=== PATIENT | female | born 1950 | race Caucasian/White ===

== ENCOUNTER → 2021-12-09 | Outpatient (CLI) | payer MEDICARE ==
--- NOTE | 2021-12-09 10:24 | CT ---
EXAMINATION TYPE: CT brain wo con DATE OF EXAM: 12/09/2021 COMPARISON: None available HISTORY: Memory loss CT DLP: 1108.4 mGycm Automated exposure control for dose reduction was used. TECHNIQUE: CT scan of the brain is performed without IV contrast administration. FINDINGS: Brain volume loss changes, likely age-related. Bilateral cerebral white matter hypodensities, likely representing chronic microvascular ischemic changes. Scattered arterial atherosclerotic calcification s. No acute intracranial hemorrhage. No gross acute cortical infarct. No midline shift, herniation or ve ntriculomegaly. Unremarkable marin-white matter differentiation, basal cisterns, sella and CP angles. No gross space-o ccupying lesion, vasogenic edema or mass effect. Unremarkable orbits. Clear visualized paranasal sinuses and mastoid air cells. Unremarkable calvarial bones. IMPRESSION: No acute intracranial abnormality or gross space-occupying lesion by this nonenhanced CT scan. Chroni c findings as described above.
== END | disposition home or self-care (01) ==
LOC: RADCTMAIN 09:31
PROVIDERS: ATTEND Psychiatry & Neurology Neurology
DX: R41.3 Other amnesia (principal)
CPT/HCPCS: 70450

== ENCOUNTER 2024-02-14 16:06 | Inpatient (IN) | payer MEDICARE, OTHER ==
[2024-02-14] MEDS ORDERED: NALOXONE 0.4 MG/ML 1 ML VIAL IV PRN (18:47)
--- NOTE | 2024-02-14 18:47 | ED ---
Altered Mental Status HPI - General Chief Complaint: Altered Mental Status Stated Complaint: Mass on L sided abd Time Seen by Provider: 02/14/24 16:15 Source: EMS Mode of arrival: ambulatory - History of Present Illness Initial Comments: 73-year-old female with past medical history of dementia who presents emergency department with altered mental status. She had an appointment with her primary care doctor today. Primary care doctor has been changing the patient's medications around as the patient has had significant decline in her mental status. The patient has been agitated at her facility. She is an elopement risk. Facility can no longer care for her due to her aggression. Primary care has had a hard time controlling her behavior and therefore sent her to the hospital for evaluation. At [facility] it was found that the patient had a urinary tract infection. She was given a dose of oral Keflex. They also found a 15 mm lung nodule with postobstructive atelectasis. Patient was transferred to our facility for evaluation by pulmonology. No reported fevers. No other alleviating, precipitating or modifying factors - Related Data Home Medications Medication Instructions Recorded Confirmed Melatonin 10 mg PO HS 02/14/24 02/14/24 oxyBUTYnin chloride [Ditropan] 5 mg PO DAILY 02/14/24 02/14/24 Previous Rx's Medication Instructions Recorded Acetaminophen Tab [Tylenol] 650 mg PO Q6HR PRN tab 02/17/24 cefUROXime axetiL [Ceftin] 500 mg PO BID 1 Days #2 tab 02/17/24 risperiDONE [RisperDAL] 0.75 mg PO DAILY #9 tab 02/17/24 risperiDONE [RisperDAL] 2 mg PO HS #6 tab 02/17/24 Allergies Allergy/AdvReac Type Severity Reaction Status Date / Time No Known Allergies Allergy Verified 02/14/24 17:03 Review of Systems ROS Statement: Those systems with pertinent positive or pertinent negative responses have been documented in the HPI. ROS Other: All systems not noted in ROS Statement are negative. Past Medical History Past Medical History: Hyperlipidemia, Liver Disease Additional Past Medical History / Comment(s): enlarged liver, ulcer,arthritis, unexplained wt loss > 30lbs , anemia History of Any Multi-Drug Resistant Organisms: None Reported Past Surgical History: Appendectomy, Back Surgery, Heart Catheterization, Hysterectomy Additional Past Surgical History / Comment(s): gale bunionectomy,bowel adhesions, back surgery x3-most recent February 18 2014 Past Anesthesia/Blood Transfusion Reactions: No Reported Reaction Past Psychological History: No Psychological Hx Reported Past Alcohol Use History: Occasional Past Drug Use History: None Reported - Past Family History Father Family Medical History: Cancer General Exam General appearance: alert, in no apparent distress Head exam: Present: atraumatic, normocephalic, normal inspection Eye exam: Present: normal appearance, PERRL, EOMI. Absent: scleral icterus, conjunctival injection, periorbital swelling ENT exam: Present: normal exam, mucous membranes moist Neck exam: Present: normal inspection. Absent: tenderness, meningismus, lymphadenopathy Respiratory exam: Present: normal lung sounds bilaterally. Absent: respiratory distress, wheezes, rales, rhonchi, stridor Cardiovascular Exam: Present: regular rate, normal rhythm, normal heart sounds. Absent: systolic murmur, diastolic murmur, rubs, gallop, clicks GI/Abdominal exam: Present: soft, normal bowel sounds. Absent: distended, tenderness, guarding, rebound, rigid Extremities exam: Present: normal inspection, full ROM, normal capillary refill. Absent: tenderness, pedal edema, joint swelling, calf tenderness Back exam: Present: normal inspection Neurological exam: Present: altered, CN II-XII intact Psychiatric exam: Present: normal affect, normal mood Skin exam: Present: warm, dry, intact, normal color. Absent: rash Course Vital Signs 02/14/24 02/14/24 02/14/24 16:13 17:00 18:00 Temperature 97.0 F L Pulse Rate 57 L Respiratory 16 Rate Blood Pressure 128/65 128/65 107/84 O2 Sat by Pulse 98 97 97 Oximetry 02/14/24 02/14/24 02/15/24 19:00 23:47 06:00 Temperature Pulse Rate 77 65 Respiratory 18 18 Rate Blood Pressure 122/62 98/51 111/58 O2 Sat by Pulse 97 97 100 Oximetry 02/15/24 02/15/24 02/15/24 10:53 11:00 17:36 Temperature 97.4 F L Pulse Rate 73 73 Respiratory 17 18 Rate Blood Pressure 97/67 119/65 O2 Sat by Pulse 100 100 Oximetry 02/15/24 19:24 Temperature Pulse Rate 77 Respiratory 18 Rate Blood Pressure 112/77 O2 Sat by Pulse 99 Oximetry Medical Decision Making - Medical Decision Making Was pt. sent in by a medical professional or institution (JES Celis, ASSEMBLY WORKER, urgent care, hospital, or halfway...) When possible be specific @ -Sent from [facility] Did you speak to anyone other than the patient for history (EMS, parent, family, police, friend...)? What history was obtained from this source @ -Spoke with EMS and daughter for history Did you review nursing and triage notes (agree or disagree)? Why? @ -I reviewed and agree with nursing and triage notes Were old charts reviewed (outside hosp., previous admission, EMS record, old EKG, old radiological studies, urgent care reports/EKG's, halfway records)? Report findings @ -I reviewed the chart from [facility] Differential Diagnosis (chest pain, altered mental status, abdominal pain women, abdominal pain men, vaginal bleeding, weakness, fever, dyspnea, syncope, head ache, dizziness, GI bleed, back pain, seizure, CVA, palpatations, mental health, musculoskeletal)? @ -Differential Altered Mental Status: Hypoglycemia, DKA, hypercapnia, ETOH, overdose, CO poisoning, trauma, myxedema coma, HTN encephalopathy, infection, encephalitis, psychosis, intercranial hemorrhage, hepatic encephalopathy, meningitis, CVA, this is not meant to be an all-inclusive list EKG interpreted by me (3pts min.). @ -Completed X-rays interpreted by me (1pt min.). @ -None done CT interpreted by me (1pt min.). @ -None done U/S interpreted by me (1pt. min.). @ -None done What testing was considered but not performed or refused? (CT, X-rays, U/S, labs)? Why? @ -CT and laboratory studies however this was already completed at outside facility What meds were considered but not given or refused? Why? @ -None Did you discuss the management of the patient with other professionals (professionals i.e. JES Celis, ASSEMBLY WORKER, lab, RT, psych nurse, social media assistant, vp project, teacher, global chief experience officer, manager highway)? Give summary @ -Spoke with Dr. Madden for admission Was smoking cessation discussed for >3mins.? @ -No Was critical care preformed (if so, how long)? @ -No Were there social determinants of health that impacted care today? How? (Homelessness, low income, unemployed, alcoholism, drug addiction, transportation, low edu. Level, literacy, decrease access to med. care, half-way, rehab)? @ -No Was there de-escalation of care discussed even if they declined (Discuss DNR or withdrawal of care, Hospice)? DNR status @ -Patient is at an AFC house What co-morbidities impacted this encounter? (DM, HTN, Smoking, COPD, CAD, Cancer, CVA, ARF, Chemo, Hep., AIDS, mental health diagnosis, sleep apnea, morbid obesity)? @ -Dementia Was patient admitted / discharged? Hospital course, mention meds given and route, prescriptions, significant lab abnormalities, going to OR and other pertinent info. @ -Upon arrival patient seen and evaluated in room 19. Thorough history and physical exam was performed. I did review the transfer packet from [facility]. Patient will be admitted with pulmonology consultation Undiagnosed new problem with uncertain prognosis? @ -No Drug Therapy requiring intensive monitoring for toxicity (Heparin, Nitro, Insulin, Cardizem)? @ -No Were any procedures done? @ -No Diagnosis/symptom? @ -Acute encephalopathy, acute UTI, lung nodule Acute, or Chronic, or Acute on Chronic? @ -Acute Uncomplicated (without systemic symptoms) or Complicated (systemic symptoms)? @ -Complicated Side effects of treatment? @ -No Exacerbation, Progression, or Severe Exacerbation? @ -No Poses a threat to life or bodily function? How? (Chest pain, [place], [place], pneumonia, PE, COPD, DKA, ARF, appy, cholecystitis, CVA, Diverticulitis, Homicidal, Suicidal, threat to staff... and all critical care pts) @ -No - Lab Data Result diagrams: 02/15/24 09:21 02/15/24 09:21 Lab Results 02/15/24 02/15/24 02/15/24 Range/Units 09:21 09:21 11:58 WBC 5.5 (3.8-10.6) k/uL RBC 3.46 L (3.80-5.40) m/uL Hgb 10.2 L (11.4-16.0) gm/dL Hct 32.3 L (34.0-46.0) % MCV 93.5 (80.0-100.0) fL MCH 29.6 (25.0-35.0) pg MCHC 31.7 (31.0-37.0) g/dL RDW 13.2 (11.5-15.5) % Plt Count 408 (150-450) k/uL MPV 8.0 Neutrophils % 60 % Lymphocytes % 29 % Monocytes % 6 % Eosinophils % 3 % Basophils % 1 % Neutrophils # 3.3 (1.3-7.7) k/uL Lymphocytes # 1.6 (1.0-4.8) k/uL Monocytes # 0.3 (0-1.0) k/uL Eosinophils # 0.2 (0-0.7) k/uL Basophils # 0.1 (0-0.2) k/uL Hypochromasia Slight Sodium 138 (137-145) mmol/L Potassium 4.2 (3.5-5.1) mmol/L Chloride 106 (98-107) mmol/L Carbon Dioxide 24 (22-30) mmol/L Anion Gap 8 mmol/L BUN 28 H (7-17) mg/dL Creatinine 0.78 (0.52-1.04) mg/dL Est GFR (CKD-EPI)AfAm 88 (>60 ml/min/1.73 sqM) Est GFR (CKD-EPI)NonAf 77 (>60 ml/min/1.73 sqM) Glucose 139 H (74-99) mg/dL Calcium 9.3 (8.4-10.2) mg/dL Urine Color Light Yellow Urine Appearance Turbid H (Clear) Urine pH 6.0 (5.0-8.0) Ur Specific [place] 1.027 (1.001-1.035) Urine Protein Trace H (Negative) Urine Glucose (UA) Negative (Negative) Urine Ketones Negative (Negative) Urine Blood Small H (Negative) Urine Nitrite Positive H (Negative) Urine Bilirubin Negative (Negative) Urine Urobilinogen <2.0 (<2.0) mg/dL Ur Leukocyte Esterase Large H (Negative) Urine RBC 9 H (0-5) /hpf Urine WBC >182 H (0-5) /hpf Urine WBC Clumps Many H (None) /hpf Ur Squamous Epith Cells 2 (0-4) /hpf Urine Bacteria Occasional H (None) /hpf Urine Mucus Rare H (None) /hpf Disposition Clinical Impression: Acute encephalopathy, UTI (urinary tract infection), Lung mass Disposition: ADMITTED IP TO THIS HOSP Is patient prescribed a controlled substance at d/c from ED?: No Time of Disposition: 18:47 Decision to Admit Reason: Admit from EC Decision Date: 02/14/24 Decision Time: 18:47
[2024-02-14] MEDS: cefTRIAXone IN SWFI 1,000 MG/10 ML SYRINGE IVP STA (21:30)
[2024-02-14] MEDS: ACETAMINOPHEN TAB 325 MG TAB PO PRN (21:31)
[2024-02-14] MEDS: ENOXAPARIN 40 MG/0.4 ML SYRINGE SQ SCH (21:36)
[2024-02-14] MEDS: haloperidoL 0.5 MG TAB PO SCH (22:01)
[2024-02-14] MEDS: risperiDONE 0.5 MG TAB PO SCH (22:01)
[2024-02-15] MEDS ORDERED: RX INFO: IV CONTRAST WAS GIVEN 1 EACH MISC MISCELLANE PRN (02:43)
[2024-02-15] MEDS: SODIUM CHLORIDE 0.9% 1,000 ML IV SCH (03:08)
--- NOTE | 2024-02-15 03:36 | P.CNPUL ---
History of Present Illness Consult date: 02/15/24 Requesting physician: Bhargavi Mayes Reason for consult: other (Pulmonary nodule) Chief complaint: Altered mental status History of present illness: Patient is a 73-year-old white female whose past medical history is unknown to me. She was transferred yesterday from [facility] with altered mental status and suspected urinary tract infection. Patient is a very poor historian. I am unable to review obtain any useful information from interview. According to the emergency room record, patient had an appointment with her primary care provider earlier yesterday. She was noted to be more confused and agitated. The [facility] facility that she was staying at reportedly could no longer take care of her due to her aggression. She was sent to [facility] for evaluation. She did have a preliminary evaluation. Reportedly found to have urinary tract infection. She was given a dose of Keflex. She did have a CT of the abdomen and pelvis at the outside facility. Incidentally, the patient was noted to have a right-sided 1.5 cm lung nodule. For this reason we were consulted. I was able to review the CT of the abdomen and pelvis from the outside facility, which demonstrate the basilar lung hummel, and a 1.5 cm peripheral right lower lobe lung nodule and possible associated postobstructive atelectasis. Unknown if the patient has any pre-existing lung disease or cancer history. Prior smoking status unknown. Patient is currently lying in bed, on room air, in no acute distress. She is oriented to self only. Baseline mentation unknown. Currently, calm and noncombative. She is receiving Haldol 0.5 mg p.o. twice daily, risperidone, and Zyprexa. She also received 1 dose of Rocephin in the emergency department. Urinalysis was reviewed from outside facility which was positive for nitrates and leukocytes. Creatinine 0.84 and BMP 34. No leukocytosis. No documented fevers. Procalcitonin 0.04. Vital signs at our facility are stable. Review of Systems ROS unobtainable: due to mental status Past Medical History Past Medical History: Hyperlipidemia, Liver Disease Additional Past Medical History / Comment(s): enlarged liver, ulcer,arthritis, unexplained wt loss > 30lbs , anemia History of Any Multi-Drug Resistant Organisms: None Reported Past Surgical History: Appendectomy, Back Surgery, Heart Catheterization, Hysterectomy Additional Past Surgical History / Comment(s): gale bunionectomy,bowel adhesions, back surgery x3-most recent February 18 2014 Past Anesthesia/Blood Transfusion Reactions: No Reported Reaction Past Psychological History: No Psychological Hx Reported Past Alcohol Use History: Occasional Past Drug Use History: None Reported - Past Family History Father Family Medical History: Cancer Medications and Allergies Home Medications Medication Instructions Recorded Confirmed Type Melatonin 10 mg PO HS 02/14/24 02/14/24 History OLANZapine [ZyPREXA] 5 mg PO DAILY 02/14/24 02/14/24 History haloperidoL [Haldol] 0.5 mg PO BID 02/14/24 02/14/24 History oxyBUTYnin chloride [Ditropan] 5 mg PO DAILY 02/14/24 02/14/24 History risperiDONE [RisperDAL] 0.5 mg PO BID 02/14/24 02/14/24 History Allergies Allergy/AdvReac Type Severity Reaction Status Date / Time No Known Allergies Allergy Verified 02/14/24 17:03 Physical Exam Vitals: Vital Signs Temp Pulse Resp BP Pulse Ox 02/14/24 23:47 77 18 98/51 97 02/14/24 19:00 122/62 97 02/14/24 18:00 107/84 97 02/14/24 17:00 128/65 97 02/14/24 16:13 97.0 F L 57 L 16 128/65 98 Intake and Output 02/14/24 02/14/24 02/15/24 14:59 22:59 06:59 Other: Weight 45.359 kg GENERAL EXAM: Alert, 73-year-old white female, fairly calm and comfortable in no apparent distress. HEAD: Normocephalic and atraumatic EYES: Normal reaction of pupils, equal size. NOSE: Clear with pink turbinates. THROAT: No erythema or exudates. NECK: No masses, no JVD. CHEST: No chest wall deformity. LUNGS: Equal air entry with no crackles, wheeze, rhonchi or dullness. On room air. No conversational dyspnea or accessory muscle use.. CVS: S1 and S2 normal with no audible murmur, regular rhythm. No extra heart sounds ABDOMEN: No hepatosplenomegaly, active bowel sounds, no guarding or rigidity. SPINE: No scoliosis or deformity SKIN: No rashes CENTRAL NERVOUS SYSTEM: Alert and oriented to self only. No focal deficits, tone is normal in all 4 extremities. EXTREMITIES: There is no peripheral edema, clubbing, or cyanosis. Peripheral pulses are intact. Results - Diagnostic Findings Chest x-ray: image reviewed Assessment and Plan Assessment: Peripheral right lower lobe 1.5 cm lung nodule with suspected associated postobstructive atelectasis. No prior recent imaging of the chest for review. Suspected urinary tract infection Worsening altered mental status, under evaluation Unknown baseline mentation, possible baseline dementia Chronic anemia Plan: Currently on room air Above-mentioned nodule was incidentally found on CT abdomen and pelvis performed at outside facility. Unfortunately, no recent imaging of the chest for review. Obtain CT of the chest with contrast. More recommendations to follow Infectious disease was added for management of the patient's presumptive UTI. Currently on multiple different antipsychotics. Patient is being worked up for possible placement on discharge We will continue to follow I have personally seen and examined the patient, performed the documentation and the assessment and plan as written. Number of minutes spent on the visit:20 Time with Patient: Greater than 30
[2024-02-15] MEDS: oxyBUTYnin chloride 5 MG TAB PO SCH (09:27)
[2024-02-15] MEDS: OLANZapine 5 MG TAB PO SCH (09:27)
[2024-02-15 09:43] LABS: Basophils # (A) 0.1 k/uL (0-0.2); Basophils % (A) 1 %; Eosinophils # (A) 0.2 k/uL (0-0.7); Eosinophils % (A) 3 %; HCT 32.3 % (34.0-46.0); HGB 10.2 gm/dL (11.4-16.0); Hypochromasia Slight; Lymphocytes # (A) 1.6 k/uL (1.0-4.8); Lymphocytes % (A) 29 %; MCH 29.6 pg (25.0-35.0); MCHC 31.7 g/dL (31.0-37.0); MCV 93.5 fL (80.0-100.0); Monocytes # (A) 0.3 k/uL (0-1.0); Monocytes % (A) 6 %; Neutrophils # (A) 3.3 k/uL (1.3-7.7); Neutrophils % (A) 60 %; Platelet Count 408 k/uL (150-450); RBC 3.46 m/uL (3.80-5.40); RDW 13.2 % (11.5-15.5); WBC 5.5 k/uL (3.8-10.6)
[2024-02-15 10:01] LABS: African American GFR (CKD) 88 (>60 ml/min/1.73 sqM); Anion Gap 8 mmol/L; Blood Urea Nitrogen 28 mg/dL (7-17); Calcium 9.3 mg/dL (8.4-10.2); Carbon Dioxide 24 mmol/L (22-30); Chloride 106 mmol/L (98-107); Glucose 139 mg/dL (74-99); Non-African American GFR(CKD) 77 (>60 ml/min/1.73 sqM); Potassium 4.2 mmol/L (3.5-5.1); Sodium 138 mmol/L (137-145)
--- NOTE | 2024-02-15 12:29 | CT ---
EXAMINATION TYPE: CT chest w con DATE OF EXAM: 02/15/2024 COMPARISON: 05/03/2014 and and outside radiograph 02/14/2024 HISTORY: 73-year-old female Pulmonary Nodule TECHNIQUE: Contiguous axial scanning of the chest after the administration of 100 ml mL of Isovue 300 . Coronal/sagittal reconstructions performed. CT DLP: 182.1mGycm. Automatic exposure control utilized for a dose reduction. FINDINGS: Heart upper limits of normal in size without pericardial effusion. LAD and RCA coronary calcification s. Aorta normal caliber with mild atherosclerotic arch calcifications and aberrant direct takeoff of the left vertebral artery directly from the aortic arch. Distal descending thoracic aorta is borderline ectatic and 2.5 cm. No thoracic lymph adenopathy by CT size criteria. Bilobed subpleural nodularity lateral right base measuring up to 2.5 x 2.0 cm (coronal image 56 and a xial image 34). Strandy interstitial scarring in the lower lungs with mild left basilar bronchiolecta sis. Additional mild emphysematous changes present. Visualized upper abdomen shows multiple right renal cysts measuring up to 1.3 cm. [place] atherosclero tic calcifications partially visualized mid abdominal aorta. Bones: Dextroconvex scoliosis of the thoracic spine. Chronic appearing mild superior endplate deformi ties of multiple lower thoracic and upper lumbar vertebral bodies. No discrete paravertebral soft tis silke abnormality seen. IMPRESSION: 1. COPD with mild emphysema and some interstitial scarring/fibrosis at the lung bases, progressed fro 2013. 2. Bilobed subpleural opacity lateral right base measuring up to 2.5 cm. While this could represent a n infectious/inflammatory focus, further PET CT evaluation recommended for potential neoplasm.
[2024-02-15 13:17] LABS: Appearance,Urine Turbid (Clear); Bacteria,Urine Occasional /hpf; Bilirubin,Urine Negative (Negative); Blood,Urine Small (Negative); Color,Urine Light Yellow; Glucose,Urine (UA) Negative (Negative); Ketones,Urine Negative (Negative); Leukocyte Esterase,Urine Large (Negative); Mucus,Urine Rare /hpf; Nitrite,Urine Positive (Negative); Protein,Urine Trace (Negative); RBC,Urine 9 /hpf (0-5); Specific Gravity,Urine 1.027 (1.001-1.035); Squamous Epithelial Cell,Urine 2 /hpf (0-4); Urobilinogen,Urine <2.0 mg/dL (<2.0); WBC,Urine >182 /hpf (0-5)
[2024-02-15 14:05] VITALS: BMI 17.2
--- NOTE | 2024-02-15 16:41 | P.HPIM ---
History of Present Illness H&P Date: 02/15/24 Chief Complaint: Increased confusion This is a pleasant 73-year-old patient, lives at [facility]. Patient had an appointment with her PCP. They have been changing and adjusting her medications for her mental status. She was getting agitated at the facility. Elopement risk. Facility was finding it difficult to care for her aggression. Patient was sent to [facility] where the patient was found have a UTI. Received a dose of Keflex and patient was sent down here for further evaluation. Patient laying in bed. Pleasantly confused. Able to ambulate. Did eat a meal here. Does not know what place this is or why she is here. Review of systems: GEN.: None EYES: None HEENT: None NECK: None RESPIRATORY: None CARDIOVASCULAR: None GASTROINTESTINAL: None GENITOURINARY: None MUSCULOSKELETAL: None LYMPHATICS: None HEMATOLOGICAL: None PSYCHIATRY: Confused e NEUROLOGICAL: None Social history: Living at [facility]. Probably smokes Physical examination: VITAL SIGNS: Afebrile, 73, 17, 111/58, 100% room air GENERAL: BMI 17.2, thin built,. Loss of subcutaneous fat and muscle mass EYES: Pupils equal. Conjunctiva shantel l. HEENT: External appearance of nose and ears normal, oral cavity grossly normal. NECK: JVD not raised; masses not palpable. HEART: First and second heart sounds are normal; no edema. LUNGS: Respiratory rate normal; clear to auscultation. ABDOMEN: Soft, nontender, liver spleen not palpable, no masses palpable. PSYCH: [Patient knows her name. Does not know where she is. Does not know the year.. MUSCULOSKELETAL:No Clubbing/cyanosis;muscles-grossly intact. OA prominent bones loss of muscle mass NEUROLOGICAL: Cranial nerves grossly intact; no facial asymmetry, power and sensation grossly intact. LYMPHATICS: No lymph nodes palpable in the axilla and neck INVESTIGATIONS, reviewed in the clinical context: February 14: White count 5.5 hemoglobin 10.2 platelets 408 sodium 138 potassium 4.2 BUN 28 creatinine 0.78 UA positive for nitrate leukoesterase WBC Labs from [facility]: Troponin less than 0.04, UA positive for leukoesterase and nitrate. Chest x-ray right-sided nodule. CT scan brain showing chronic changes. EKG tracing personally reviewed by me-normal sinus rhythm Assessment and plan: -Acute delirium probably from underlying UTI with underlying dementia -Acute UTI with cystitis IV ceftriaxone -Severe cognitive impairment likely from underlying Alzheimer's dementia with agitation possible psychosis Increase a.m. dose of Risperdal to 0.75 in the morning. Increase p.m. dose to 2mg. DC Zyprexa. Also DC Haldol p.o. scheduled -Chronic urine incontinence Will use diapers. DC Ditropan -Severe protein calorie malnutrition likely from decreased oral intake Ensure 1 can 3 times daily -Right pulmonary lung nodule Pulmonary consulted Full code -BHARATHI. Zuleyka Macedo Given the complexity and severity of patient's condition expect the patient to be in the hospital at least for 2 overnights. Patient's medication need to be adjusted will need at least 2 to 3 days for the same. I tried to reach the patient's daughter the listed #[phone]. Not going through. Past Medical History Past Medical History: Hyperlipidemia, Liver Disease Additional Past Medical History / Comment(s): enlarged liver, ulcer,arthritis, unexplained wt loss > 30lbs , anemia History of Any Multi-Drug Resistant Organisms: None Reported Past Surgical History: Appendectomy, Back Surgery, Heart Catheterization, Hysterectomy Additional Past Surgical History / Comment(s): gale bunionectomy,bowel adhesions, back surgery x3-most recent February 18 2014 Past Anesthesia/Blood Transfusion Reactions: No Reported Reaction Past Psychological History: No Psychological Hx Reported Past Alcohol Use History: Occasional Past Drug Use History: None Reported - Past Family History Father Family Medical History: Cancer Medications and Allergies Home Medications Medication Instructions Recorded Confirmed Type Melatonin 10 mg PO HS 02/14/24 02/14/24 History OLANZapine [ZyPREXA] 5 mg PO DAILY 02/14/24 02/14/24 History haloperidoL [Haldol] 0.5 mg PO BID 02/14/24 02/14/24 History oxyBUTYnin chloride [Ditropan] 5 mg PO DAILY 02/14/24 02/14/24 History risperiDONE [RisperDAL] 0.5 mg PO BID 02/14/24 02/14/24 History Allergies Allergy/AdvReac Type Severity Reaction Status Date / Time No Known Allergies Allergy Verified 02/14/24 17:03 Physical Exam Vitals: Vital Signs Temp Pulse Resp BP Pulse Ox 02/15/24 06:00 65 18 111/58 100 02/14/24 23:47 77 18 98/51 97 02/14/24 19:00 122/62 97 02/14/24 18:00 107/84 97 02/14/24 17:00 128/65 97 02/14/24 16:13 97.0 F L 57 L 16 128/65 98 Intake and Output 02/14/24 02/15/24 02/15/24 22:59 06:59 14:59 Other: Weight 45.359 kg Results CBC & Chem 7: 02/15/24 09:21 02/15/24 09:21 Labs: Abnormal Lab Results - Last 24 Hours (Table) 02/15/24 02/15/24 Range/Units 09:21 09:21 RBC 3.46 L (3.80-5.40) m/uL Hgb 10.2 L (11.4-16.0) gm/dL Hct 32.3 L (34.0-46.0) % BUN 28 H (7-17) mg/dL Glucose 139 H (74-99) mg/dL
[2024-02-15] MEDS ORDERED: risperiDONE 1 MG TAB PO SCH ×2 (21:00)
[2024-02-15] MEDS: MELATONIN 5 MG TABLET PO SCH (21:40)
[2024-02-15] MEDS: risperiDONE 1 MG TAB PO SCH (21:40)
--- NOTE | 2024-02-15 22:37 | P.CONS ---
History of Present Illness - Reason for Consult Consult date: 02/15/24 UTI with encephalopathy Requesting physician: Bhargavi Mayes - Chief Complaint Mental status changes x 1 day - History of Present Illness Patient is a 73-year-old female with a past medical history significant for hyperlipidemia liver disease, apparently was seen at [facility] for mental status changes as the patient PCP has hard time controlling her behavior at that facility patient noticed to have UTI and also a pulmonary nodule for the patient has been sent to [facility] for further evaluation, pending the patient recently noticed to having more mental status changes and the patient was on elopement precaution at the facility where she w as living, there is no clear history of any fever or any chills no headache or URI symptoms no chest pain shortness of breath or cough patient apparently holds her urine for long and did have a fall cloudy urine as reported by the caregiver on presentation to the [facility] patient was afebrile and no fever have been recorded subsequently patient was not tachycardic hypotensive or hypoxic and no need for supplemental oxygen patient did have white count of 5.5 creatinine 0.78 urine was turbid large leukocyte esterase more than 182 WBC patient did receive a dose of Rocephin infectious he was consulted for further management of antibiotic therapy. Information has been obtained from the caregiver at the bedside patient was not a good historian Review of Systems Positive points has been mentioned in HPI complete review could not be obtained because of his underlying mental status Past Medical History Past Medical History: Hyperlipidemia, Liver Disease Additional Past Medical History / Comment(s): enlarged liver, ulcer,arthritis, unexplained wt loss > 30lbs , anemia History of Any Multi-Drug Resistant Organisms: None Reported Past Surgical History: Appendectomy, Back Surgery, Heart Catheterization, Hysterectomy Additional Past Surgical History / Comment(s): gale bunionectomy,bowel adhesions, back surgery x3-most recent February 18 2014 Past Anesthesia/Blood Transfusion Reactions: No Reported Reaction Past Psychological History: No Psychological Hx Reported Smoking Status: Former smoker Past Alcohol Use History: Occasional Past Drug Use History: None Reported - Past Family History Father Family Medical History: Cancer Medications and Allergies Home Medications Medication Instructions Recorded Confirmed Type Melatonin 10 mg PO HS 02/14/24 02/14/24 History OLANZapine [ZyPREXA] 5 mg PO DAILY 02/14/24 02/14/24 History haloperidoL [Haldol] 0.5 mg PO BID 02/14/24 02/14/24 History oxyBUTYnin chloride [Ditropan] 5 mg PO DAILY 02/14/24 02/14/24 History risperiDONE [RisperDAL] 0.5 mg PO BID 02/14/24 02/14/24 History Allergies Allergy/AdvReac Type Severity Reaction Status Date / Time No Known Allergies Allergy Verified 02/14/24 17:03 Physical Exam Vitals: Vital Signs Temp Pulse Resp BP Pulse Ox 02/15/24 11:00 97.4 F L 02/15/24 10:53 73 17 97/67 100 02/15/24 06:00 65 18 111/58 100 02/14/24 23:47 77 18 98/51 97 02/14/24 19:00 122/62 97 02/14/24 18:00 107/84 97 02/14/24 17:00 128/65 97 02/14/24 16:13 97.0 F L 57 L 16 128/65 98 Intake and Output 02/14/24 02/15/24 02/15/24 22:59 06:59 14:59 Other: Weight 45.359 kg 45.359 kg GENERAL DESCRIPTION: Elderly female lying in bed, no distress. No tachypnea or accessory muscle of respiration use. HEENT: Shows Pallor , no scleral icterus. Oral mucous membrane is dry. No pharyngeal erythema or thrush NECK: Trachea central, no thyromegaly. LUNGS: Unlabored breathing. Clear to auscultation anteriorly. No wheeze or c rackle. HEART: S1, S2, regular rate and rhythm. No loud murmur ABDOMEN: Soft, no tenderness , guarding or rigidity, no organomegaly EXTREMITIES: No edema of feet. SKIN: No rash, no masses palpable. NEUROLOGICAL: The patient is awake, orientation could not be determined, mood and affect normal. Results CBC & Chem 7: 02/15/24 09:21 02/15/24 09:21 Labs: Abnormal Lab Results - Last 24 Hours (Table) 02/15/24 02/15/24 02/15/24 Range/Units 09:21 09:21 11:58 RBC 3.46 L (3.80-5.40) m/uL Hgb 10.2 L (11.4-16.0) gm/dL Hct 32.3 L (34.0-46.0) % BUN 28 H (7-17) mg/dL Glucose 139 H (74-99) mg/dL Urine Appearance Turbid H (Clear) Urine Protein Trace H (Negative) Urine Blood Small H (Negative) Urine Nitrite Positive H (Negative) Ur Leukocyte Esterase Large H (Negative) Urine RBC 9 H (0-5) /hpf Urine WBC >182 H (0-5) /hpf Urine WBC Clumps Many H (None) /hpf Urine Bacteria Occasional H (None) /hpf Urine Mucus Rare H (None) /hpf Assessment and Plan (1) Acute encephalopathy Current Visit: Yes Status: Acute Code(s): G93.40 - ENCEPHALOPATHY, UNSPECIFIED SNOMED Code(s): 05917065 (2) UTI (urinary tract infection) Current Visit: Yes Status: Acute Code(s): N39.0 - URINARY TRACT INFECTION, SITE NOT SPECIFIED SNOMED Code(s): 54390808 Plan: 1patient presented hospital mental status changes which is likely multifactorial did have a positive UA cloudy urine likely from enteric gram- negative pathogen. 2we will start the patient Rocephin 2 g daily while waiting for the culture to finalize question concern answered We will follow on clinical condition and cultures to further adjust medication if needed Thank you for this consultation we will follow the patient along with you Dictation was produced using Momo dictation software. please excuse any grammatical, word or spelling errors. Time with Patient: Greater than 30
[2024-02-16] MEDS ORDERED: risperiDONE 0.5 MG TAB PO SCH (09:00)
[2024-02-16] MEDS: risperiDONE 0.25 MG TAB PO SCH (09:18)
--- NOTE | 2024-02-16 13:01 | P.PN ---
Subjective Progress Note Date: 02/16/24 Patient is a 73-year-old white female whose past medical history is unknown to me. She was transferred yesterday from [facility] with altered mental status and suspected urinary tract infection. Patient is a very poor historian. I am unable to review obtain any useful information from interview. According to the emergency room record, patient had an appointment with her primary care provider earlier yesterday. She was noted to be more confused and agitated. The [facility] facility that she was staying at reportedly could no longer take care of her due to her aggression. She was sent to [facility] for evaluation. She did have a preliminary evaluation. Reportedly found to have urinary tract infection. She was given a dose of Keflex. She did have a CT of the abdomen and pelvis at the outside facility. Incidentally, the patient was noted to have a right-sided 1.5 cm lung nodule. For this reason we were consulted. I was able to review the CT of the abdomen and pelvis from the outside facility, which demonstrate the basilar lung hummel, and a 1.5 cm peripheral right lower lobe lung nodule and possible associated postobstructive atelectasis. Unknown if the patient has any pre-existing lung disease or cancer history. Prior smoking status unknown. Patient is currently lying in bed, on room air, in no acute distress. She is oriented to self only. Baseline mentation unknown. Currently, calm and noncombative. She is receiving Haldol 0.5 mg p.o. twice daily, risperidone, and Zyprexa. She also received 1 dose of Rocephin in the emergency department. Urinalysis was reviewed from outside facility which was positive for nitrates and leukocytes. Creatinine 0.84 and BMP 34. No leukocytosis. No documented fevers. Procalcitonin 0.04. Vital signs at our facility are stable. The patient is seen today February 16, 2024 in follow-up on the regular medical floor. The patient herself is a poor historian. Her daughter is at the bedside. The patient is maintaining good O2 saturation in the high 90s on room air. She has been afebrile. Hemodynamically stable. A CT scan of the chest revealed evidence of COPD with mild emphysema and some interstitial scarring/fibrosis of the lung bases which has progressed since 2013. There is a bilobed subpleural opacity in the lateral right base measuring up to 2.5 cm. Could represent infectious/inflammatory focus. Cannot rule out neoplasm. Urinalysis reveals positive nitrates greater than 182 WBCs and occasional bacteria. He is currently on ceftriaxone. Lovenox for DVT prophylaxis. Normal saline at 75 MLS per hour. Objective - Vital Signs Vital signs: Vital Signs Temp 97.9 F 02/16/24 12:10 Pulse 60 02/16/24 12:10 Resp 16 02/16/24 12:10 BP 115/67 02/16/24 12:10 Pulse Ox 99 02/16/24 12:10 FiO2 Intake & Output 02/15/24 02/16/24 02/16/24 18:59 06:59 18:59 Weight 45.359 kg 45.359 kg Other: Voiding Method Toilet Toilet Diaper Diaper Incontinent Incontinent # Voids 2 - Exam GENERAL EXAM: Alert, confused 73-year-old female, on room air, in no apparent distress. HEAD: Normocephalic. EYES: Normal reaction of pupils, equal size. NOSE: Clear with pink turbinates. THROAT: No erythema or exudates. NECK: No masses, no JVD. CHEST: No chest wall deformity. LUNGS: Equal air entry with no crackles, wheeze, rhonchi or dullness. CVS: S1 and S2 normal with no audible murmur, regular rhythm. ABDOMEN: No hepatosplenomegaly, normal bowel sounds, no guarding or rigidity. SPINE: No scoliosis or deformity SKIN: No rashes CENTRAL NERVOUS SYSTEM: No focal deficits, tone is normal in all 4 extremities. EXTREMITIES: There is no peripheral edema. No clubbing, no cyanosis. Peripheral pulses are intact. - Labs CBC & Chem 7: 02/15/24 09:21 02/15/24 09:21 Labs: Abnormal Lab Results - Last 24 Hours (Table) 02/15/24 Range/Units 11:58 Urine Appearance Turbid H (Clear) Urine Protein Trace H (Negative) Urine Blood Small H (Negative) Urine Nitrite Positive H (Negative) Ur Leukocyte Esterase Large H (Negative) Urine RBC 9 H (0-5) /hpf Urine WBC >182 H (0-5) /hpf Urine WBC Clumps Many H (None) /hpf Urine Bacteria Occasional H (None) /hpf Urine Mucus Rare H (None) /hpf Assessment and Plan Assessment: Bilobed subpleural opacity lateral right base measuring up to 2.5 cm. This could be infectious/inflammatory focus however neoplasm cannot be ruled out Suspected urinary tract infection, on ceftriaxone Worsening altered mental status, under evaluation, suspect secondary to UTI Unknown baseline mentation, possible baseline dementia Chronic obstructive pulmonary disease History of 50 years of smoking, quit 2 months ago Chronic anemia Plan: The patient was seen and evaluated Stable and on room air Will need outpatient workup regarding pulmonary lesion The patient's daughter is at the bedside and verbalizes understanding Follow-up in our office in 1 week Plan is for ECF at discharge I have personally seen and examined the patient, performed the documentation and the assessment and plan as written. Number of minutes spent on the visit: 10.
--- NOTE | 2024-02-16 14:52 | P.PN ---
Subjective Progress Note Date: 02/16/24 Principal diagnosis: Reason for follow-up is UTI Patient is a 73-year-old female with a past medical history significant for hyperlipidemia liver disease, apparently was seen at [facility] for mental status changes with the patient has been diagnosed with a UTI and pulmonary nodule prompting transfer to this facility. On today's evaluation that is 02/16/2024,the patient remains to be afebrile patient is breathing comfortably room air does not seem to be any distress no agitation reported by the sitter at the bedside denies any chest pain no abdominal pain or diarrhea. Patient did not have any lab draw today cultures are currently pending Objective - Vital Signs Vital signs: Vital Signs Temp 97.9 F 02/16/24 12:10 Pulse 60 02/16/24 12:10 Resp 16 02/16/24 12:10 BP 115/67 02/16/24 12:10 Pulse Ox 99 02/16/24 12:10 FiO2 Intake & Output 02/15/24 02/16/24 02/16/24 18:59 06:59 18:59 Weight 45.359 kg 45.359 kg Other: Voiding Method Toilet Toilet Diaper Diaper Incontinent Incontinent # Voids 2 - Exam GENERAL DESCRIPTION: An elderly female lying in bed in no distress RESPIRATORY SYSTEM: Unlabored breathing , decreased breath sounds at bases HEART: S1 S2 regular rate and rhythm , ABDOMEN: Soft , no tenderness EXTREMITIES: No edema feet - Labs CBC & Chem 7: 02/15/24 09:21 02/15/24 09:21 Assessment and Plan (1) Acute encephalopathy Current Visit: Yes Status: Acute Code(s): G93.40 - ENCEPHALOPATHY, UNSPECIFIED SNOMED Code(s): 32285870 (2) UTI (urinary tract infection) Current Visit: Yes Status: Acute Code(s): N39.0 - URINARY TRACT INFECTION, SITE NOT SPECIFIED SNOMED Code(s): 35525671 Plan: 1patient presented hospital mental status changes which is likely multifactorial did have a positive UA cloudy urine likely from enteric gram- negative pathogen. 2patient to continue with Rocephin 2 g daily while waiting for the culture to finalize Family the bedside questions were answered Dictation was produced using [employer] dictation software. please excuse any grammatical, word or spelling errors. Time with Patient: Less than 30
--- NOTE | 2024-02-16 17:48 | P.PN ---
Progress Note - Text Progress Note Date: 02/16/24 Chief Complaint: Increased confusion This is a pleasant 73-year-old patient, lives at [facility]. Patient had an appointment with her PCP. They have been changing and adjusting her medications for her mental status. She was getting agitated at the facility. Elopement risk. Facility was finding it difficult to care for her aggression. Patient was sent to [facility] where the patient was found have a UTI. Received a dose of Keflex and patient was sent down here for further evaluation. Patient laying in bed. Pleasantly confused. Able to ambulate. Did eat a meal here. Does not know what place this is or why she is here. February 15: Sitting up in bed. Patient's son at the bedside. Patient slept well last night. Ate a good breakfast. Light lunch. Answering simple questions. Spoke to social insurance analyst. Looking into placement. Yesterday evening spoke at length to patient's daughter over the phone. Questions answered. Active Medications Acetaminophen (Acetaminophen Tab 325 Mg Tab) 650 mg PO Q6HR PRN PRN Reason: Mild Pain or Fever > 100.5 Last Admin: 02/14/24 21:31 Dose: 650 mg Enoxaparin Sodium (Enoxaparin 40 Mg/0.4 Ml Syringe) 40 mg SQ DAILY [facility] Last Admin: 02/16/24 09:17 Dose: 40 mg Sodium Chloride (Saline 0.9%) 1,000 mls @ 75 mls/hr IV .[id number] [facility] Last Admin: 02/16/24 05:45 Dose: Not Given Ceftriaxone Sodium 2 gm/ (Sodium Chloride) 50 mls @ 100 mls/hr IVPB Q24HR [facility]; Protocol Last Admin: 02/16/24 09:18 Dose: 100 mls/hr Melatonin (Melatonin 5 Mg Tablet) 10 mg PO HS [facility] Last Admin: 02/15/24 21:40 Dose: 10 mg Miscellaneous Information (Rx Info: Iv Contrast Was Given 1 Each Misc) 1 each MISCELLANE DAILY PRN PRN Reason: Per Protocol Stop: 02/17/24 02:43 Naloxone HCl (Naloxone 0.4 Mg/Ml 1 Ml Vial) 0.2 mg IV Q2M PRN PRN Reason: Opioid Reversal Oxybutynin Chloride (Oxybutynin Chloride 5 Mg Tab) 5 mg PO DAILY [facility] Last Admin: 02/16/24 09:18 Dose: 5 mg Risperidone (Risperidone 0.25 Mg Tab) 0.75 mg PO DAILY [facility] Last Admin: 02/16/24 09:18 Dose: 0.75 mg Risperidone (Risperidone 1 Mg Tab) 2 mg PO HS [facility] Last Admin: 02/15/24 21:40 Dose: 2 mg Social history: Living at [facility]. Probably smokes Physical examination: VITAL SIGNS: 97.9, 60, 16, 115/67, 99% room air GENERAL: BMI 17.2, thin built,. Loss of subcutaneous fat and muscle mass. Sitting up in bed comfortable EYES: Pupils equal. Conjunctiva shantle l. HEENT: External appearance of nose and ears normal, oral cavity grossly normal. NECK: JVD not raised; masses not palpable. HEART: First and second heart sounds are normal; no edema. LUNGS: Respiratory rate normal; clear to auscultation. ABDOMEN: Soft, nontender, liver spleen not palpable, no masses palpable. PSYCH: [Patient knows her name. Does not know where she is. Does not know the year.. MUSCULOSKELETAL:No Clubbing/cyanosis;muscles-grossly intact. OA prominent bones loss of muscle mass INVESTIGATIONS, reviewed in the clinical context: February 14: White count 5.5 hemoglobin 10.2 platelets 408 sodium 138 potassium 4.2 BUN 28 creatinine 0.78 UA positive for nitrate leukoesterase WBC Labs from [facility]: Troponin less than 0.04, UA positive for leukoesterase and nitrate. Chest x-ray right-sided nodule. CT scan brain showing chronic changes. EKG tracing personally reviewed by me-normal sinus rhythm Assessment and plan: -Acute delirium probably from underlying UTI with underlying dementia: Better -Acute UTI with cystitis IV ceftriaxone -Severe cognitive impairment likely from underlying Alzheimer's dementia with agitation possible psychosis: Better Increase a.m. dose of Risperdal to 0.75 in the morning. Increase p.m. dose to 2mg. DC Zyprexa. Also DC Haldol p.o. scheduled -Chronic urine incontinence Will use diapers. -Severe protein calorie malnutrition likely from decreased oral intake Ensure 1 can 3 times daily -Right pulmonary lung nodule Pulmonary following. For outpatient PET scan Full code -BHARATHI. Zuleyka Macedo Looking for placement. Continue current medication treatment plan. Past Medical History Past Medical History: Hyperlipidemia, Liver Disease Additional Past Medical History / Comment(s): enlarged liver, ulcer,arthritis, unexplained wt loss > 30lbs , anemia History of Any Multi-Drug Resistant Organisms: None Reported Past Surgical History: Appendectomy, Back Surgery, Heart Catheterization, Hysterectomy Additional Past Surgical History / Comment(s): gale bunionectomy,bowel adhesions, back surgery x3-most recent February 18 2014 Past Anesthesia/Blood Transfusion Reactions: No Reported Reaction Past Psychological History: No Psychological Hx Reported Past Alcohol Use History: Occasional Past Drug Use History: None Reported
[2024-02-17 02:08] VITALS: RESP 18
[2024-02-17 08:33] VITALS: BP 128/77; PULSE 68; TEMP 97.6
--- NOTE | 2024-02-17 09:00 | CDI ---
Documentation Clarification Form Date: 02/17/2024 From: Keeley Hicks Phone: [phone] Admit Date: 02/16/2024 10:21:00 AM Patient Name: Karen Kwong Visit Number: [id number] Discharge Date: ATTENTION: The Clinical Documentation Specialists (CDI) and [facility] Coding Staff appreciate your assistance in clarifying documentation. Please respond to the clarification below the line at the bottom and electronically sign. The CDI & [facility] Coding staff will review the response and follow-up if needed. Please note: Queries are made part of the Legal Health Record. If you have any questions, please contact the author of this message via ITS. Dr. James Madden: Acute Encephalopathy is documented in the ID consult 02/14. Additional clarification regarding the type of encephalopathy is requested. History/Risk Factors: 73-year-old female with a history of severe cognitive impairment from underlying Alzheimer's dementia who presents with AMS and found to have UTI Clinical Indicators: 02/14 ID consult, Assessment: "(1) Acute encephalopathy." Plan: "1patient presented hospital mental status changes which is likely multifactorial did have a positive UA cloudy urine likely from enteric gram-negative pathogen." 02/15 IM PN, Assessment and Plan: "-Acute delirium probably from underlying UTI with underlying dementia: Better" 02/14 BUN: 28 02/14 Urinalysis: Appearance: Turbid, Protein: Trace, Blood: Small, Nitrite: Positive, Leukocyte Esterase: Large, RBC: 9, WBC: >182, Bacteria: Occasional, Mucus: Rare 02/14 Urine culture, preliminary: Gram negative bacilli Treatment: Normal Saline IV 75cc/hour 02/14-02/15 Rocephin 2gram IV [id number] start 02/14 Risperidone 2mg PO HS start 02/14 Risperidone 0.75mg PO daily start 02/15 Please clarify the type of encephalopathy, if known: [ + ] Metabolic Encephalopathy superimposed on dementia [ ] Other, please specify [ ] Unable to determine MTDD
--- NOTE | 2024-02-17 12:15 | P.DS ---
Providers Date of admission: 02/16/24 10:21 Expected date of discharge: 02/17/24 Attending physician: James Madden Consults: 02/14/24 18:47 Consult Physician Urgent Consulting Provider: Angel Crespo Consult Reason/Comments: lung mass Do you want consulting provider notified?: Yes Consult Physician Urgent Consulting Provider: Idris Hernandez Consult Reason/Comments: uti with encephalopathy Do you want consulting provider notified?: Yes Primary care physician: Physician Nonstaff Hospital Course: Chief Complaint: Increased confusion This is a pleasant 73-year-old patient, lives at [facility]. Patient had an appointment with her PCP. They have been changing and adjusting her medications for her mental status. She was getting agitated at the facility. Elopement risk. Facility was finding it difficult to care for her aggression. Patient was sent to [facility] where the patient was found have a UTI. Received a dose of Keflex and patient was sent down here for further evaluation. Patient laying in bed. Pleasantly confused. Able to ambulate. Did eat a meal here. Does not know what place this is or why she is here. February 15: Sitting up in bed. Patient's son at the bedside. Patient slept well last night. Ate a good breakfast. Light lunch. Answering simple questions. Spoke to health and social care teacher. Looking into placement. Yesterday evening spoke at length to patient's daughter over the phone. Questions answered. February 16: Daughter at the bedside. Patient slept for last night. Eating fair. Answering simple questions. Did walk in the hallway. Has a bed at [facility]. Spoke to the ed case manager. CODE STATUS DNR. Discussion and discharge planning more than 35 minutes Social history: Living at [facility]. Probably smokes Physical examination: VITAL SIGNS: 97.6, 68, 18, 128/77, 99% room air GENERAL: BMI 17.2, thin built,. Loss of subcutaneous fat and muscle mass. S itting at edge of the bed. EYES: Pupils equal. Conjunctiva shantel l. HEENT: External appearance of nose and ears normal, oral cavity grossly normal. NECK: JVD not raised; masses not palpable. HEART: First and second heart sounds are normal; no edema. LUNGS: Respiratory rate normal; clear to auscultation. ABDOMEN: Soft, nontender, liver spleen not palpable, no masses palpable. PSYCH: [Patient knows her name. Does not know where she is. Does not know the year.. MUSCULOSKELETAL:No Clubbing/cyanosis;muscles-grossly intact. OA prominent bones loss of muscle mass INVESTIGATIONS, reviewed in the clinical context: February 14: White count 5.5 hemoglobin 10.2 platelets 408 sodium 138 potassium 4.2 BUN 28 creatinine 0.78 UA positive for nitrate leukoesterase WBC Labs from [facility]: Troponin less than 0.04, UA positive for leukoesterase and nitrate. Chest x-ray right-sided nodule. CT scan brain showing chronic changes. EKG tracing personally reviewed by me-normal sinus rhythm Assessment and plan: -Acute delirium probably from underlying UTI with underlying dementia: Better -Acute UTI with cystitis IV ceftriaxone Ceftin 5 mg twice daily 2 more doses -Severe cognitive impairment likely from underlying Alzheimer's dementia with agitation possible psychosis: Better Increase a.m. dose of Risperdal to 0.75 in the morning. Increase p.m. dose to 2mg. DC Zyprexa. Also DC Haldol p.o. scheduled -Chronic urine incontinence Will use diapers. -Severe protein calorie malnutrition likely from decreased oral intake Ensure 1 can 3 times daily -Right pulmonary lung nodule Follow with Dr. CRESPO outpatient. For outpatient PET scan DNR -[facility]. Zuleyka Macedo Disposition: [facility] Advance care planning [February 16] This was discussed with patient's daughter Latosha. Overall clinical picture clinical status activity discussed. She is decided to proceed with patient being a no code. Understands. Time spent about 25 minutes Past Medical History Past Medical History: Hyperlipidemia, Liver Disease Additional Past Medical History / Comment(s): enlarged liver, ulcer,arthritis, unexplained wt loss > 30lbs , anemia History of Any Multi-Drug Resistant Organisms: None Reported Past Surgical History: Appendectomy, Back Surgery, Heart Catheterization, Hysterectomy Additional Past Surgical History / Comment(s): gale bunionectomy,bowel adhesions, back surgery x3-most recent February 18 2014 Past Anesthesia/Blood Transfusion Reactions: No Reported Reaction Past Psychological History: No Psychological Hx Reported Past Alcohol Use History: Occasional Past Drug Use History: None Reported Plan - Discharge Summary Discharge Rx Participant: No New Discharge Prescriptions: New risperiDONE [RisperDAL] 0.75 mg PO DAILY #9 tab risperiDONE [RisperDAL] 2 mg PO HS #6 tab Acetaminophen Tab [Tylenol] 650 mg PO Q6HR PRN tab PRN Reason: Mild Pain Or Fever > 100.5 cefUROXime axetiL [Ceftin] 500 mg PO BID 1 Days #2 tab Continue oxyBUTYnin chloride [Ditropan] 5 mg PO DAILY Melatonin 10 mg PO HS Discontinued risperiDONE [RisperDAL] 0.5 mg PO BID haloperidoL [Haldol] 0.5 mg PO BID OLANZapine [ZyPREXA] 5 mg PO DAILY Discharge Medication List Melatonin 10 mg PO HS 02/14/24 [History] oxyBUTYnin chloride [Ditropan] 5 mg PO DAILY 02/14/24 [History] Acetaminophen Tab [Tylenol] 650 mg PO Q6HR PRN tab 02/17/24 [Rx] cefUROXime axetiL [Ceftin] 500 mg PO BID 1 Days #2 tab 02/17/24 [Rx] risperiDONE [RisperDAL] 0.75 mg PO DAILY #9 tab 02/17/24 [Rx] risperiDONE [RisperDAL] 2 mg PO HS #6 tab 02/17/24 [Rx] Follow up Appointment(s)/Referral(s): Angel Crespo DO [Doctor of Osteopathic Medicine] - 1 Week Nonstaff,Physician [Primary Care Provider] - 1-2 days
--- NOTE | 2024-02-17 13:23 | P.PN ---
Subjective Progress Note Date: 02/17/24 Patient is a 73-year-old white female whose past medical history is unknown to me. She was transferred yesterday from [facility] with altered mental status and suspected urinary tract infection. Patient is a very poor historian. I am unable to review obtain any useful information from interview. According to the emergency room record, patient had an appointment with her primary care provider earlier yesterday. She was noted to be more confused and agitated. The [facility] facility that she was staying at reportedly could no longer take care of her due to her aggression. She was sent to [facility] for evaluation. She did have a preliminary evaluation. Reportedly found to have urinary tract infection. She was given a dose of Keflex. She did have a CT of the abdomen and pelvis at the outside facility. Incidentally, the patient was noted to have a right-sided 1.5 cm lung nodule. For this reason we were consulted. I was able to review the CT of the abdomen and pelvis from the outside facility, which demonstrate the basilar lung hummel, and a 1.5 cm peripheral right lower lobe lung nodule and possible associated postobstructive atelectasis. Unknown if the patient has any pre-existing lung disease or cancer history. Prior smoking status unknown. Patient is currently lying in bed, on room air, in no acute distress. She is oriented to self only. Baseline mentation unknown. Currently, calm and noncombative. She is receiving Haldol 0.5 mg p.o. twice daily, risperidone, and Zyprexa. She also received 1 dose of Rocephin in the emergency department. Urinalysis was reviewed from outside facility which was positive for nitrates and leukocytes. Creatinine 0.84 and BMP 34. No leukocytosis. No documented fevers. Procalcitonin 0.04. Vital signs at our facility are stable. The patient is seen today February 16, 2024 in follow-up on the regular medical floor. The patient herself is a poor historian. Her daughter is at the bedside. The patient is maintaining good O2 saturation in the high 90s on room air. She has been afebrile. Hemodynamically stable. A CT scan of the chest revealed evidence of COPD with mild emphysema and some interstitial scarring/fibrosis of the lung bases which has progressed since 2013. There is a bilobed subpleural opacity in the lateral right base measuring up to 2.5 cm. Could represent infectious/inflammatory focus. Cannot rule out neoplasm. Urinalysis reveals positive nitrates greater than 182 WBCs and occasional bacteria. He is currently on ceftriaxone. Lovenox for DVT prophylaxis. Normal saline at 75 MLS per hour. The patient is seen today February 17, 2024 in follow-up on the regular medical floor. She is sitting up having breakfast. She is maintaining good O2 saturations in the 90s on room air. Culture was positive for gram-negative bacilli. She is continued on ceftriaxone. Lovenox for DVT prophylaxis. Сергей morales is at the bedside. Her daughter is at the bedside. Objective - Vital Signs Vital signs: Vital Signs Temp 97.6 F 02/17/24 07:44 Pulse 68 02/17/24 07:44 Resp 18 02/17/24 07:44 BP 128/77 02/17/24 07:44 Pulse Ox 99 02/17/24 07:44 FiO2 Intake & Output 02/16/24 02/17/24 02/17/24 18:59 06:59 18:59 Other: Voiding Method Toilet Toilet Toilet Diaper Diaper Diaper Incontinent Incontinent Incontinent # Voids 1 2 1 - Exam GENERAL EXAM: Alert, confused 73-year-old female, sitting up having breakfast, on room air, in no apparent distress. HEAD: Normocephalic. EYES: Normal reaction of pupils, equal size. NOSE: Clear with pink turbinates. THROAT: No erythema or exudates. NECK: No masses, no JVD. CHEST: No chest wall deformity. LUNGS: Equal air entry with no crackles, wheeze, rhonchi or dullness. CVS: S1 and S2 normal with no audible murmur, regular rhythm. ABDOMEN: No hepatosplenomegaly, normal bowel sounds, no guarding or rigidity. SPINE: No scoliosis or deformity SKIN: No rashes CENTRAL NERVOUS SYSTEM: No focal deficits, tone is normal in all 4 extremities. EXTREMITIES: There is no peripheral edema. No clubbing, no cyanosis. Peripheral pulses are intact. - Labs CBC & Chem 7: 02/15/24 09:21 02/15/24 09:21 Labs: Microbiology - Last 24 Hours (Table) 02/15/24 11:58 Urine Culture - Preliminary Urine,Voided Gram Neg Bacilli Assessment and Plan Assessment: Bilobed subpleural opacity lateral right base measuring up to 2.5 cm. This could be infectious/inflammatory focus however neoplasm cannot be ruled out Urinary tract infection secondary to E. coli, on ceftriaxone Worsening altered mental status, under evaluation, suspect secondary to UTI, recovered Unknown baseline mentation, possible baseline dementia Chronic obstructive pulmonary disease History of 50 years of smoking, quit 2 months ago Chronic anemia Plan: The patient was seen and evaluated Medications reviewed Stable and on room air Will need outpatient workup regarding pulmonary lesion The patient's daughter present and verbalizes understanding Follow-up in our office in 1 week This patient was seen independently by the pulmonary nurse practitioner addressing pulmonary issues I have personally seen and examined the patient, performed the documentation and the assessment and plan as written. Number of minutes spent on the visit: 24.
--- NOTE | 2024-02-17 15:42 | P.PN ---
Subjective Progress Note Date: 02/17/24 Principal diagnosis: Reason for follow-up is UTI Patient is a 73-year-old female with a past medical history significant for hyperlipidemia liver disease, apparently was seen at [facility] for mental status changes with the patient has been diagnosed with a UTI and pulmonary nodule prompting transfer to this facility. On today's evaluation that is 02/17/2024,the patient remains to be afebrile, patient is on room air not requiring supplemental oxygen and is breathing comfortably the patient remains to be confused and did not provide an elaborate history no significant changes per the caregiver at the bedside. No new lab has been drawn today urine is growing gram-negative bacilli Objective - Vital Signs Vital signs: Vital Signs Temp 97.6 F 02/17/24 07:44 Pulse 68 02/17/24 07:44 Resp 18 02/17/24 07:44 BP 128/77 02/17/24 07:44 Pulse Ox 99 02/17/24 07:44 FiO2 Intake & Output 02/16/24 02/17/24 02/17/24 18:59 06:59 18:59 Other: Voiding Method Toilet Toilet Toilet Diaper Diaper Diaper Incontinent Incontinent Incontinent # Voids 1 2 1 - Exam GENERAL DESCRIPTION: An elderly female lying in bed in no distress RESPIRATORY SYSTEM: Unlabored breathing , decreased breath sounds at bases HEART: S1 S2 regular rate and rhythm , ABDOMEN: Soft , no tenderness EXTREMITIES: No edema feet - Labs CBC & Chem 7: 02/15/24 09:21 02/15/24 09:21 Labs: Microbiology - Last 24 Hours (Table) 02/15/24 11:58 Urine Culture - Preliminary Urine,Voided Gram Neg Bacilli Assessment and Plan (1) Acute encephalopathy Status: Acute Code(s): G93.40 - ENCEPHALOPATHY, UNSPECIFIED SNOMED Code(s): 28103933 (2) UTI (urinary tract infection) Status: Acute Code(s): N39.0 - URINARY TRACT INFECTION, SITE NOT SPECIFIED SNOMED Code(s): 85715867 Plan: 1patient presented hospital mental status changes which is likely multifactorial did have a positive UA cloudy urine likely from enteric gram- negative pathogen. 2patient seem to have been discharged by admitting physician on oral Ceftin may be appropriate keeping in mind improvement on the Rocephin family the bedside questions answered Dictation was produced using [employer] software. please excuse any grammatical, word or spelling errors. Time with Patient: Less than 30
== END 2024-02-17 13:58 | DRG 689 ==
LOC: EEVIPCON 16:06 → EC 16:06 → EEVIPCON 18:47 → 5NMEDONC 18:47 → OBSVTOIN 02-16 10:21
PROVIDERS: ADMIT Hospitalist; ATTEND Hospitalist
DX: N30.00 Acute cystitis without hematuria (principal); E43 Unspecified severe protein-calorie malnutrition; G93.41 Metabolic encephalopathy; F02.811 Dementia in other diseases classified elsewhere, unspecified severity, with agitation; J98.11 Atelectasis; Z68.1 Body mass index [BMI] 19.9 or less, adult; G30.9 Alzheimer's disease, unspecified; D64.9 Anemia, unspecified; J44.9 Chronic obstructive pulmonary disease, unspecified; J43.9 Emphysema, unspecified; K76.9 Liver disease, unspecified; Z66 Do not resuscitate; B96.20 Unspecified Escherichia coli [E. coli] as the cause of diseases classified elsewhere; R91.1 Solitary pulmonary nodule; E78.5 Hyperlipidemia, unspecified; N39.498 Other specified urinary incontinence; M19.90 Unspecified osteoarthritis, unspecified site; Z79.899 Other long term (current) drug therapy; Z87.891 Personal history of nicotine dependence
CPT/HCPCS: 71260; 80048; 81001; 85025; 87077; 87086; 87186; 96361; 96365; 96366; 96372; 96375; 99285